=== PATIENT | female | born 1985 | race African-American/Black ===

== ENCOUNTER 2022-05-16 22:54 | Emergency (ER) | payer OTHER ==
[2022-05-16 23:13] VITALS: BMI 28.8
[2022-05-17] MEDS ORDERED: MAG HYDROX/AL HYDROX/SIMETH 30 ML UNIT-DOSE CUP PO ONE (00:03)
[2022-05-17] MEDS ORDERED: ACETAMINOPHEN 325 MG TABLET (FP) PO ONE (00:04)
[2022-05-17] MEDS ORDERED: LIDOCAINE 5% TOPICAL PATCH TP ONE (00:04)
[2022-05-17 00:11] VITALS: BP 106/64; PULSE 77; RESP 18; TEMP 98.1
[2022-05-17] MEDS ORDERED: ACETAMINOPHEN 325 MG TABLET (FP) ONE ×2 (00:12→00:18)
[2022-05-17] MEDS ORDERED: LIDOCAINE 5% TOPICAL PATCH ONE (00:13)
[2022-05-17] MEDS ORDERED: SUCRALFATE 1 GM/10 ML UNIT DOSE CUPS PO ONE (01:13)
[2022-05-17] MEDS ORDERED: LIDOCAINE PATCH REMOVAL MC ONE (12:00)
== END 2022-05-17 03:05 | disposition home or self-care (01) ==
LOC: JER 22:54
DX: R07.89 Other chest pain (principal)
CPT/HCPCS: 99283-25